=== PATIENT | female | born 1970 | race Two or more races ===

== ENCOUNTER 2016-10-13 12:20 | Observation (INO) | payer OTHER ==
[~2016-10-13] VITALS: Ht 30.5 cm; Wt 74.8 kg
[2016-10-13 12:45] LABS: Basophils # (auto) 0.1 uL; Basophils % (auto) 1.3 % (0.0-2.0); CONDITION Y; Eosinophils # (auto) 0 uL; Eosinophils % (auto) 0.9 % (0.0-7.0); Hematocrit 34.8 % (36.0-46.0); Hemoglobin 11.1 g/dL (12.2-16.2); Lymphocytes # (auto) 1.4 uL; Mean Corpuscular Hemoglobin 27.3 pg (28.0-32.0); Mean Corpuscular Volume 85.3 fL (80.0-100.0); Mean Platelet Volume 8.8 fL (7.4-10.4); Monocytes # (auto) 0.5 uL; Monocytes % (auto) 9.1 % (0.0-12.0); Neutrophils # (auto) 3.4 uL; Neutrophils % (auto) 62.7 % (37.0-80.0); Platelet Count (auto) 373 10^3/uL (140-450); Red Cell Distribution Width 18.6 % (11.6-16.0); White Blood Cell 5.4 10^3/uL (4.4-10.8)
[2016-10-13 13:22] LABS: Albumin 3.7 g/dL (3.4-5.0); Amylase 50 U/L (25-115); Anion Gap 6 (5-15); Blood Urea Nitrogen 5 mg/dL (7-18); Calcium 8.5 mg/dL (8.5-10.1); Carbon Dioxide 26 mmol/L (21-32); Chloride 108 mmol/L (98-107); Glucose 81 mg/dL (74-106); Magnesium 2.2 mg/dL (1.6-2.6); Potassium 4.3 mmol/L (3.5-5.1); Sodium 140 mmol/L (136-145)
[2016-10-13 13:24] LABS: BUN/Creatinine Ratio 7.1; GFR African American 117 mL/min; GFR Non-African American 97 mL/min
[2016-10-13 13:30] LABS: Alkaline Phosphatase 80 U/L (45-117); Aspartate Aminotransferase 17 U/L (15-37); Bilirubin, Total 0.3 mg/dL (0.2-1.0); Total Protein 7.4 g/dL (6.4-8.2)
[2016-10-13] MEDS ORDERED: ONDANSETRON HCL 4 MG/2 ML VIAL IV ONE (13:45)
[2016-10-13] MEDS ORDERED: SODIUM CHLORIDE 0.9% 1,000 ML IVB ONE (13:45)
[2016-10-13] MEDS ORDERED: MORPHINE SULF INJ 2 MG/ML SYRINGE 1ML IV PRN (13:45)
[2016-10-13 14:15] LABS: Amylase 48 U/L (25-115)
[2016-10-13 15:48] VITALS: BP 109/75
== END 2016-10-13 18:04 | disposition home or self-care (01) ==
LOC: EDBD 12:20 → ER 12:26 → OVERFLOW 13:47 → ER 18:04
PROVIDERS: ADMIT Family Medicine; ATTEND Family Medicine
DX: K82.4 Cholesterolosis of gallbladder (principal); K29.70 Gastritis, unspecified, without bleeding; Z82.49 Family history of ischemic heart disease and other diseases of the circulatory system
CPT/HCPCS: 36415; 76705; 80053; 82150; 83690; 83735; 84484; 84702; 85025; 96361; 96374; 96375; 99285; G0378; J2270; J2405; J7030; 93005

== ENCOUNTER 2016-12-23 14:31 | Emergency (ER) | payer OTHER ==
[~2016-12-23] VITALS: Ht 157.5 cm; Wt 72.6 kg
[2016-12-23 15:30] VITALS: BP 122/75
== END 2016-12-23 17:23 | disposition home or self-care (01) ==
LOC: ER 14:31
DX: S00.03XA Contusion of scalp, initial encounter (principal); J20.9 Acute bronchitis, unspecified; Z82.49 Family history of ischemic heart disease and other diseases of the circulatory system; W01.0XXA Fall on same level from slipping, tripping and stumbling without subsequent striking against object, initial encounter; Y93.89 Activity, other specified; Y92.89 Other specified places as the place of occurrence of the external cause; Y99.8 Other external cause status
CPT/HCPCS: 70450

== ENCOUNTER 2018-04-23 14:59 | Emergency (ER) | payer MEDICAID, OTHER ==
[~2018-04-23] VITALS: Ht 157.5 cm; Wt 85.7 kg
[2018-04-23 15:39] VITALS: BP 100/62
[2018-04-23] MEDS ORDERED: IPRATROPIUM BROM 0.5 MG/2.5ML INH SOL NEB ONE (15:45)
[2018-04-23] MEDS ORDERED: ALBUTEROL SULF 2.5 MG/0.5ML(0.5%) NEB SOLN NEB ONE (15:45)
[2018-04-23] MEDS ORDERED: cefTRIAXone SOD 1,000 MG VL IM ONE (16:00)
== END 2018-04-23 16:26 | disposition home or self-care (01) ==
LOC: ER 14:59
DX: J20.9 Acute bronchitis, unspecified (principal); J03.90 Acute tonsillitis, unspecified
CPT/HCPCS: 71046; 94640; 96372; 99283; J0696; J7611; J7644